=== PATIENT | female | born 1980 | race Caucasian/White ===

== ENCOUNTER 2020-06-05 20:57 | Inpatient (IN) | payer OTHER ==
[~2020-06-05] VITALS: Ht 152.4 cm; Wt 54.5 kg
[2020-06-05] MEDS ORDERED: LORA-1001 PO (22:04)
[2020-06-05] MEDS ORDERED: OMEP20 PO (22:04)
[2020-06-05] MEDS ORDERED: ESCI20TA87 PO (22:04)
[2020-06-05] MEDS ORDERED: LORazepam 1 MG TABLET PO ONE (22:30)
[2020-06-05 22:49] LABS: COVID AG,FIA SOURCE NASAL SWAB
[2020-06-05 22:50] LABS: BASOPHILS % (AUTO) 1.2 % (0.0-2.0); EOSINOPHILS % (AUTO) 0.5 % (1.0-6.0); HEMATOCRIT 34.8 % (36-46); HEMOGLOBIN 11.6 g/dL (12.0-16.0); LYMPHOCYTES # (AUTO) 1.4 K/uL (1.0-4.8); LYMPHOCYTES % (AUTO) 11.1 % (22.0-44.0); MEAN CORPUSCULAR HEMOGLOBIN 30.6 pg (26.0-34.0); MEAN CORPUSCULAR HGB CONC 33.5 G/dL (31.0-37.0); MEAN CORPUSCULAR VOLUME 92 fL (80-100); MONOCYTES # (AUTO) 0.6 K/uL (0.1-1.0); MONOCYTES % (AUTO) 4.5 % (2.0-9.0); NEUTROPHILS # (AUTO) 10.7 K/uL (1.8-7.7); NEUTROPHILS % (AUTO) 82.7 % (40.0-70.0); PLATELET COUNT (AUTO) 275 K/uL (150-450); RED CELL DISTRIBUTION WIDTH 13.6 % (11.5-14.5)
[2020-06-05 23:12] LABS: ALANINE AMINOTRANSFERASE 249 U/L (12-78); ALKALINE PHOSPHATASE 54 U/L (46-116); ANION GAP 13 mmol/L (8-16); ASPARTATE AMINOTRANSFERASE 91 U/L (15-37); BILIRUBIN,TOTAL 0.9 mg/dL (0.1-1.0); CALCIUM, TOTAL 8.9 mg/dL (8.8-10.5); CARBON DIOXIDE 25 mmol/L (22-29); CHLORIDE 105 mmol/L (98-107); CREATININE 0.82 mg/dL (0.60-1.30); GLOMERULAR FILTR. RATE CALC > 60 mL/min (>60); GLUCOSE,RANDOM 106 mg/dL (70-110); HCG,QUANTITATIVE < 1 mIU/mL (0-6); SODIUM SERUM 143 mmol/L (136-145); TOTAL PROTEIN, SERUM 7.2 g/dL (6.4-8.2); UREA NITROGEN, BLOOD 7 mg/dL (7-18)
[2020-06-05 23:15] LABS: POTASSIUM 2.5 mmol/L (3.5-5.1)
[2020-06-05] MEDS: POTASSIUM CHL 10 MEQ/WATER 50 ML IV SCH ×2 (23:30→23:42)
[2020-06-06] MEDS: POTASSIUM CHL 10 MEQ/WATER 50 ML IV SCH ×6 (00:30→02:52)
[2020-06-06] MEDS ORDERED: HALOPERIDOL 5 MG TABLET PO ONE (02:30)
[2020-06-06] MEDS ORDERED: LORazepam 1 MG TABLET PO ONE (02:30)
[2020-06-06] MEDS: ZOLPIDEM TARTRATE 10 MG TABLET PO PRN (03:22)
[2020-06-06 03:47] LABS: AMPHET/METH SCREEN,URINE NEGATIVE (NEGATIVE); BARBITURATE SCREEN, URINE NEGATIVE (NEGATIVE); BENZODIAZEPINES SCREEN,URINE POSITIVE (NEGATIVE); CANNABINOID SCREEN,URINE POSITIVE (NEGATIVE); COCAINE SCREEN,URINE NEGATIVE (NEGATIVE); METHADONE SCREEN, URINE NEGATIVE (NEGATIVE); OPIATE SCREEN,URINE NEGATIVE (NEGATIVE)
[2020-06-06 04:05] LABS: PHENCYCLIDINE SCREEN,URINE NEGATIVE (NEGATIVE)
[2020-06-06 04:47] LABS: APPEARANCE,URINE CLOUDY (CLEAR); GLUCOSE, URINE (UA) NEGATIVE (NEGATIVE); KETONES,URINE 40 mg/dL (NEGATIVE); LEUKOCYTE ESTERASE ,URINE NEGATIVE (NEGATIVE); NITRATE,URINE NEGATIVE (NEGATIVE); OCCULT BLOOD,URINE MODERATE (NEGATIVE); PH,URINE 6.5 (5.0-8.0); PROTEIN,URINE TRACE (NEGATIVE)
[2020-06-06 04:53] LABS: POTASSIUM 3.3 mmol/L (3.5-5.1)
[2020-06-06 04:53] LABS: BILIRUBIN,URINE PRELIM. POSITIVE (NEGATIVE)
[2020-06-06 05:03] LABS: SQUAMOUS EPITHELIAL CELL,UR Many /LPF (None Seen)
[2020-06-06 05:04] LABS: BACTERIA,URINE Few /HPF (None Seen); RBC,URINE 0-2 /HPF (0-2); WBC,URINE 0-2 /HPF (0-5)
[2020-06-06 06:58] LABS: CHOL/HDL RATIO 3.3 (3.9-5.7)
[2020-06-06 08:05] VITALS: BP 148/71
[2020-06-06] MEDS: HALOPERIDOL 5 MG TABLET PO PRN ×2 (08:42→17:53)
[2020-06-06] MEDS: LORazepam 2 MG TABLET PO PRN ×2 (08:42→17:53)
[2020-06-06] MEDS ORDERED: ALBUTEROL SULFATE HFA 90 MCG/PUFF 8 GM INHALER IH PRN (08:45)
[2020-06-06] MEDS ORDERED: IBUPROFEN 600 MG TABLET PO PRN (08:45)
[2020-06-06] MEDS ORDERED: CloNIDine HCL 0.1 MG TABLET PO PRN (08:45)
[2020-06-06] MEDS ORDERED: ACETAMINOPHEN 325 MG TABLET PO PRN (08:45)
[2020-06-06] MEDS ORDERED: DOCUSATE SODIUM 100 MG CAPSULE PO PRN (08:45)
[2020-06-06] MEDS ORDERED: OMEPRAZOLE 20 MG CAPSULE PO PRN (08:45)
[2020-06-06] MEDS ORDERED: BACITRACIN 28 GM OINTMENT TP PRN (08:45)
[2020-06-06] MEDS ORDERED: MAGNESIUM HYDROXIDE SUSPENSION 30 ML UDCUP PO PRN (08:45)
[2020-06-06] MEDS ORDERED: MAG HYDROX/AL HYDROX/SIMETH ES 30 ML SUSPENSION UDCUP PO PRN (08:45)
[2020-06-06] MEDS ORDERED: POTASSIUM CHLORIDE 20 MEQ ER TABLET PO ONE (08:45)
[2020-06-06] MEDS ORDERED: BENZOCAINE/MENTHOL LOZENGE PO PRN (08:45)
[2020-06-06] MEDS ORDERED: PETROLATUM,WHITE 28 GM JELLY TP PRN (08:45)
[2020-06-06] MEDS ORDERED: LOPERAMIDE HCL 2 MG CAPSULE PO PRN (08:45)
[2020-06-06] MEDS ORDERED: ONDANSETRON HCL 4 MG TABLET PO PRN (08:45)
[2020-06-07] MEDS: RisperiDONE 1 MG TABLET PO SCH ×2 (08:14→16:16)
[2020-06-07] MEDS: DIVALPROEX SODIUM 500 MG DR TABLET PO SCH ×2 (08:14→16:16)
[2020-06-07] MEDS: LORazepam 2 MG TABLET PO PRN ×3 (08:15→16:39)
[2020-06-07 12:00] VITALS: BP 141/77
[2020-06-07 16:34] VITALS: BP 123/81
[2020-06-08] MEDS: LORazepam 2 MG TABLET PO PRN ×3 (05:09→19:13)
[2020-06-08 08:10] VITALS: BP 118/73
[2020-06-08] MEDS: DIVALPROEX SODIUM 500 MG DR TABLET PO SCH ×2 (08:33→16:10)
[2020-06-08] MEDS: RisperiDONE 1 MG TABLET PO SCH ×2 (08:33→16:10)
[2020-06-08 16:00] VITALS: BP 110/75
[2020-06-08] MEDS: ZOLPIDEM TARTRATE 10 MG TABLET PO PRN (20:55)
[2020-06-09 08:26] VITALS: BP 138/88
[2020-06-09] MEDS: HALOPERIDOL 5 MG TABLET PO PRN (08:47)
[2020-06-09] MEDS: LORazepam 2 MG TABLET PO PRN ×2 (08:47→15:46)
[2020-06-09] MEDS: RisperiDONE 1 MG TABLET PO SCH ×2 (08:47→16:04)
[2020-06-09] MEDS: DIVALPROEX SODIUM 500 MG DR TABLET PO SCH ×2 (08:47→16:04)
[2020-06-09 16:00] VITALS: BP 135/93
[2020-06-10 00:20] VITALS: BP 128/78
[2020-06-10] MEDS: LORazepam 2 MG TABLET PO PRN (00:20)
[2020-06-10] MEDS: ZOLPIDEM TARTRATE 10 MG TABLET PO PRN (00:21)
[2020-06-10 08:25] VITALS: BP 122/73
[2020-06-10] MEDS: RisperiDONE 1 MG TABLET PO SCH (08:29)
[2020-06-10] MEDS: DIVALPROEX SODIUM 500 MG DR TABLET PO SCH (08:29)
== END 2020-06-10 15:00 | disposition left against medical advice (07) | DRG 885 ==
LOC: EMS 20:57 → 3EC 23:18
PROVIDERS: ADMIT Psychiatry & Neurology Psychiatry; ATTEND Psychiatry & Neurology Psychiatry
DX: F25.0 Schizoaffective disorder, bipolar type (principal); Z20.822 Contact with and (suspected) exposure to COVID-19; F12.10 Cannabis abuse, uncomplicated; I10 Essential (primary) hypertension; E87.6 Hypokalemia; K21.9 Gastro-esophageal reflux disease without esophagitis; K59.00 Constipation, unspecified; G47.00 Insomnia, unspecified; Z53.29 Procedure and treatment not carried out because of patient's decision for other reasons; F41.9 Anxiety disorder, unspecified; Z71.51 Drug abuse counseling and surveillance of drug abuser; Z91.041 Radiographic dye allergy status; Z88.8 Allergy status to other drugs, medicaments and biological substances; Z91.040 Latex allergy status; Z91.14 Patient's other noncompliance with medication regimen; Z91.018 Allergy to other foods
CPT/HCPCS: 84132; 87426; 99285; G0480; J3480

== ENCOUNTER 2020-06-27 10:57 | Inpatient (IN) | payer OTHER ==
[~2020-06-27] VITALS: Ht 152.4 cm; Wt 48.4 kg
[2020-06-27 11:47] LABS: BASOPHILS % (AUTO) 1.5 % (0.0-2.0); EOSINOPHILS % (AUTO) 2.2 % (1.0-6.0); HEMATOCRIT 33.6 % (36-46); HEMOGLOBIN 11.2 g/dL (12.0-16.0); LYMPHOCYTES # (AUTO) 1.3 K/uL (1.0-4.8); MEAN CORPUSCULAR HEMOGLOBIN 30.6 pg (26.0-34.0); MEAN CORPUSCULAR HGB CONC 33.4 G/dL (31.0-37.0); MEAN CORPUSCULAR VOLUME 92 fL (80-100); MONOCYTES # (AUTO) 0.6 K/uL (0.1-1.0); MONOCYTES % (AUTO) 5.8 % (2.0-9.0); NEUTROPHILS # (AUTO) 8.5 K/uL (1.8-7.7); NEUTROPHILS % (AUTO) 78.5 % (40.0-70.0); PLATELET COUNT (AUTO) 295 K/uL (150-450); RED BLOOD CELL COUNT(AUTO) 3.67 MIL/uL (4.00-5.20); RED CELL DISTRIBUTION WIDTH 14.1 % (11.5-14.5)
[2020-06-27 11:57] LABS: ANION GAP 7 mmol/L (8-16); CALCIUM, TOTAL 8.6 mg/dL (8.8-10.5); CARBON DIOXIDE 26 mmol/L (22-29); CHLORIDE 107 mmol/L (98-107); CREATININE 0.86 mg/dL (0.60-1.30); GLOMERULAR FILTR. RATE CALC > 60 mL/min (>60); GLUCOSE,RANDOM 101 mg/dL (70-110); POTASSIUM 3.2 mmol/L (3.5-5.1); SODIUM SERUM 140 mmol/L (136-145); UREA NITROGEN, BLOOD 8 mg/dL (7-18)
[2020-06-27 12:10] LABS: ALANINE AMINOTRANSFERASE 28 U/L (12-78); ALBUMIN 3.9 g/dL (3.4-5.0); ALKALINE PHOSPHATASE 48 U/L (46-116); ASPARTATE AMINOTRANSFERASE 15 U/L (15-37); BILIRUBIN,TOTAL 0.6 mg/dL (0.1-1.0); HCG,QUANTITATIVE < 1 mIU/mL (0-6); TOTAL PROTEIN, SERUM 7.1 g/dL (6.4-8.2)
[2020-06-27 12:13] LABS: VALPROIC ACID < 3 mcg/mL (50-100)
[2020-06-27] MEDS ORDERED: POTASSIUM CHLORIDE 10% 40 MEQ/30 ML LIQUID UDCUP PO ONE (12:45)
[2020-06-27] MEDS ORDERED: LORazepam 2 MG TABLET PO PRN (12:45)
[2020-06-27 13:57] LABS: AMPHET/METH SCREEN,URINE NEGATIVE (NEGATIVE); BARBITURATE SCREEN, URINE NEGATIVE (NEGATIVE); BENZODIAZEPINES SCREEN,URINE NEGATIVE (NEGATIVE); CANNABINOID SCREEN,URINE POSITIVE (NEGATIVE); COCAINE SCREEN,URINE NEGATIVE (NEGATIVE); METHADONE SCREEN, URINE NEGATIVE (NEGATIVE); OPIATE SCREEN,URINE NEGATIVE (NEGATIVE)
[2020-06-27 13:58] LABS: PHENCYCLIDINE SCREEN,URINE NEGATIVE (NEGATIVE)
[2020-06-27 16:53] LABS: COVID AG,FIA SOURCE NASOPHARYNGEAL
[2020-06-27 18:11] VITALS: BP 130/88
[2020-06-28] MEDS ORDERED: LOPERAMIDE HCL 2 MG CAPSULE PO PRN (06:45)
[2020-06-28] MEDS ORDERED: MAG HYDROX/AL HYDROX/SIMETH ES 30 ML SUSPENSION UDCUP PO PRN (06:45)
[2020-06-28] MEDS ORDERED: CloNIDine HCL 0.1 MG TABLET PO PRN (06:45)
[2020-06-28] MEDS ORDERED: PETROLATUM,WHITE 28 GM JELLY TP PRN (06:45)
[2020-06-28] MEDS ORDERED: ONDANSETRON HCL 4 MG TABLET PO PRN (06:45)
[2020-06-28] MEDS ORDERED: BACITRACIN 28 GM OINTMENT TP PRN (06:45)
[2020-06-28] MEDS ORDERED: BENZOCAINE/MENTHOL LOZENGE PO PRN (06:45)
[2020-06-28] MEDS ORDERED: ALBUTEROL SULFATE HFA 90 MCG/PUFF 8 GM INHALER IH PRN (06:45)
[2020-06-28] MEDS ORDERED: MAGNESIUM HYDROXIDE SUSPENSION 30 ML UDCUP PO PRN (06:45)
[2020-06-28] MEDS ORDERED: OMEPRAZOLE 20 MG CAPSULE PO PRN (06:45)
[2020-06-28] MEDS ORDERED: DOCUSATE SODIUM 100 MG CAPSULE PO PRN (06:45)
[2020-06-28] MEDS ORDERED: ACETAMINOPHEN 325 MG TABLET PO PRN (06:45)
[2020-06-28 08:00] VITALS: BP 116/66
[2020-06-28] MEDS: LORazepam 2 MG TABLET PO PRN ×2 (10:55→21:14)
[2020-06-28] MEDS: LITHIUM CARBONATE 300 MG CAPSULE PO SCH ×2 (16:58→17:00)
[2020-06-28 18:50] VITALS: BP 118/65
[2020-06-28] MEDS: HALOPERIDOL 5 MG TABLET PO PRN (21:15)
[2020-06-29 01:09] VITALS: BP 136/80
[2020-06-29 08:00] VITALS: BP 108/75
[2020-06-29] MEDS: LORazepam 2 MG TABLET PO PRN ×3 (08:39→18:39)
[2020-06-29] MEDS: HALOPERIDOL 5 MG TABLET PO PRN (08:51)
[2020-06-29] MEDS: LITHIUM CARBONATE 300 MG CAPSULE PO SCH ×2 (09:00→17:00)
[2020-06-29 12:10] VITALS: BP 116/79
[2020-06-29] MEDS: IBUPROFEN 600 MG TABLET PO PRN (12:13)
[2020-06-29 13:13] VITALS: BP 111/65
[2020-06-29 16:00] VITALS: BP 132/78
[2020-06-30 08:00] VITALS: BP 135/78
[2020-06-30] MEDS: LORazepam 2 MG TABLET PO PRN ×2 (08:31→18:14)
[2020-06-30] MEDS: DIVALPROEX SODIUM 500 MG DR TABLET PO SCH ×2 (08:31→16:49)
[2020-06-30] MEDS: RisperiDONE 1 MG TABLET PO SCH ×2 (08:31→16:49)
[2020-06-30] MEDS: HALOPERIDOL 5 MG TABLET PO PRN ×3 (08:31→23:50)
[2020-06-30] MEDS: LITHIUM CARBONATE 300 MG CAPSULE PO SCH ×2 (08:31→16:50)
[2020-06-30 16:00] VITALS: BP 132/75
[2020-06-30] MEDS: ZOLPIDEM TARTRATE 10 MG TABLET PO PRN (23:50)
[2020-07-01 07:48] LABS: ANION GAP 9 mmol/L (8-16); CALCIUM, TOTAL 8.7 mg/dL (8.8-10.5); CARBON DIOXIDE 29 mmol/L (22-29); CHLORIDE 108 mmol/L (98-107); CREATININE 0.69 mg/dL (0.60-1.30); GLOMERULAR FILTR. RATE CALC > 60 mL/min (>60); GLUCOSE,RANDOM 86 mg/dL (70-110); POTASSIUM 3.9 mmol/L (3.5-5.1); SODIUM SERUM 146 mmol/L (136-145); UREA NITROGEN, BLOOD 3 mg/dL (7-18)
[2020-07-01] MEDS: LITHIUM CARBONATE 300 MG CAPSULE PO SCH ×3 (09:00→16:26)
[2020-07-01] MEDS: DIVALPROEX SODIUM 500 MG DR TABLET PO SCH ×2 (10:13→16:26)
[2020-07-01] MEDS: RisperiDONE 1 MG TABLET PO SCH ×2 (10:13→16:26)
[2020-07-01] MEDS: LORazepam 2 MG TABLET PO PRN ×3 (12:22→22:02)
[2020-07-01] MEDS: IBUPROFEN 600 MG TABLET PO PRN (13:44)
[2020-07-01 17:13] VITALS: BP 100/61
[2020-07-01] MEDS: ZOLPIDEM TARTRATE 10 MG TABLET PO PRN (23:38)
[2020-07-01] MEDS: HALOPERIDOL 5 MG TABLET PO PRN (23:38)
[2020-07-02 08:00] VITALS: BP 122/74
[2020-07-02] MEDS: FOLIC ACID 0.4 MG TABLET PO SCH (08:43)
[2020-07-02] MEDS: DIVALPROEX SODIUM 500 MG DR TABLET PO SCH ×2 (08:45→16:42)
[2020-07-02] MEDS: RisperiDONE 1 MG TABLET PO SCH ×2 (08:45→16:42)
[2020-07-02] MEDS: LORazepam 2 MG TABLET PO PRN ×4 (08:45→22:49)
[2020-07-02] MEDS: HALOPERIDOL 5 MG TABLET PO PRN ×4 (08:45→22:49)
[2020-07-02] MEDS: THIAMINE 100 MG TABLET PO SCH (08:45)
[2020-07-02 16:37] LABS: COVID AG,FIA SOURCE NASOPHARYNGEAL
[2020-07-02] MEDS: IBUPROFEN 600 MG TABLET PO PRN (19:39)
[2020-07-03] MEDS: LORazepam 2 MG TABLET PO PRN ×3 (07:53→20:36)
[2020-07-03] MEDS: HALOPERIDOL 5 MG TABLET PO PRN ×3 (07:53→16:22)
[2020-07-03] MEDS: DIVALPROEX SODIUM 500 MG DR TABLET PO SCH ×2 (07:53→16:22)
[2020-07-03] MEDS: RisperiDONE 1 MG TABLET PO SCH (07:53)
[2020-07-03] MEDS: FOLIC ACID 0.4 MG TABLET PO SCH (07:53)
[2020-07-03] MEDS: THIAMINE 100 MG TABLET PO SCH (07:53)
[2020-07-03 08:35] VITALS: BP 107/68
[2020-07-03] MEDS: RisperiDONE 3 MG TABLET PO SCH (16:22)
[2020-07-03 16:37] VITALS: BP 106/69
[2020-07-03] MEDS: ZOLPIDEM TARTRATE 10 MG TABLET PO PRN (23:59)
[2020-07-04] MEDS: LORazepam 2 MG TABLET PO PRN ×4 (06:10→23:10)
[2020-07-04] MEDS: DIVALPROEX SODIUM 500 MG DR TABLET PO SCH ×2 (08:02→16:23)
[2020-07-04] MEDS: RisperiDONE 3 MG TABLET PO SCH ×2 (08:02→16:23)
[2020-07-04] MEDS: FOLIC ACID 0.4 MG TABLET PO SCH (08:02)
[2020-07-04] MEDS: THIAMINE 100 MG TABLET PO SCH (08:02)
[2020-07-04 08:06] VITALS: BP 101/72
[2020-07-04 15:19] VITALS: BP 98/68
[2020-07-04] MEDS: IBUPROFEN 600 MG TABLET PO PRN (15:19)
[2020-07-04 16:19] VITALS: BP 102/68
[2020-07-04] MEDS: HALOPERIDOL 5 MG TABLET PO PRN (16:23)
[2020-07-04] MEDS: ZOLPIDEM TARTRATE 10 MG TABLET PO PRN (20:32)
[2020-07-05] MEDS: HALOPERIDOL 5 MG TABLET PO PRN (05:17)
[2020-07-05] MEDS: DIVALPROEX SODIUM 500 MG DR TABLET PO SCH ×3 (07:58→16:18)
[2020-07-05] MEDS: FOLIC ACID 0.4 MG TABLET PO SCH (07:58)
[2020-07-05] MEDS: RisperiDONE 3 MG TABLET PO SCH ×2 (07:59→16:18)
[2020-07-05] MEDS: THIAMINE 100 MG TABLET PO SCH (07:59)
[2020-07-05] MEDS: LORazepam 2 MG TABLET PO PRN ×2 (07:59→12:03)
[2020-07-05 08:39] VITALS: BP 101/68
[2020-07-05 16:40] VITALS: BP 108/73
[2020-07-06] MEDS: ZOLPIDEM TARTRATE 10 MG TABLET PO PRN (00:34)
[2020-07-06] MEDS: LORazepam 2 MG TABLET PO PRN ×3 (00:34→19:49)
[2020-07-06 00:36] VITALS: BP 114/63
[2020-07-06 09:38] VITALS: BP 112/66
[2020-07-06] MEDS: FOLIC ACID 0.4 MG TABLET PO SCH (09:42)
[2020-07-06] MEDS: THIAMINE 100 MG TABLET PO SCH (09:42)
[2020-07-06] MEDS: RisperiDONE 3 MG TABLET PO SCH ×2 (09:43→16:12)
[2020-07-06] MEDS: DIVALPROEX SODIUM 500 MG DR TABLET PO SCH ×3 (09:43→16:12)
[2020-07-06] MEDS: HALOPERIDOL 5 MG TABLET PO PRN ×2 (09:43→19:49)
[2020-07-06 16:27] VITALS: BP 86/57
[2020-07-06 19:51] VITALS: BP 101/66
[2020-07-07 09:15] VITALS: BP 100/61
[2020-07-07] MEDS: FOLIC ACID 0.4 MG TABLET PO SCH (11:39)
[2020-07-07] MEDS: THIAMINE 100 MG TABLET PO SCH (11:40)
[2020-07-07] MEDS: RisperiDONE 3 MG TABLET PO SCH ×2 (11:40→17:23)
[2020-07-07] MEDS: DIVALPROEX SODIUM 500 MG DR TABLET PO SCH ×3 (11:40→17:23)
[2020-07-07] MEDS: HALOPERIDOL 5 MG TABLET PO PRN ×2 (15:29→20:37)
[2020-07-07 16:16] VITALS: BP 125/70
[2020-07-08] MEDS: FOLIC ACID 0.4 MG TABLET PO SCH (09:18)
[2020-07-08] MEDS: THIAMINE 100 MG TABLET PO SCH (09:18)
[2020-07-08] MEDS: DIVALPROEX SODIUM 500 MG DR TABLET PO SCH ×3 (09:18→16:51)
[2020-07-08] MEDS: RisperiDONE 3 MG TABLET PO SCH ×2 (09:18→16:51)
[2020-07-08] MEDS: HALOPERIDOL 5 MG TABLET PO PRN ×2 (09:19→19:15)
[2020-07-08 09:30] VITALS: BP 95/62
[2020-07-08 16:25] VITALS: BP 122/80
[2020-07-09] MEDS: HALOPERIDOL 5 MG TABLET PO PRN ×2 (05:02→20:01)
[2020-07-09 08:00] VITALS: BP 124/74
[2020-07-09 09:16] VITALS: BP 122/80
[2020-07-09] MEDS: FOLIC ACID 0.4 MG TABLET PO SCH (09:58)
[2020-07-09] MEDS: RisperiDONE 3 MG TABLET PO SCH ×2 (09:58→16:05)
[2020-07-09] MEDS: THIAMINE 100 MG TABLET PO SCH (09:58)
[2020-07-09] MEDS: DIVALPROEX SODIUM 500 MG DR TABLET PO SCH ×3 (09:58→16:05)
[2020-07-09 12:00] LABS: COVID AG,FIA SOURCE NASOPHARYNGEAL
[2020-07-09] MEDS: IBUPROFEN 600 MG TABLET PO PRN (16:05)
[2020-07-09 16:33] VITALS: BP 118/79
[2020-07-10] MEDS: HALOPERIDOL 5 MG TABLET PO PRN ×4 (00:52→20:56)
[2020-07-10 08:00] VITALS: BP 110/63
[2020-07-10] MEDS: THIAMINE 100 MG TABLET PO SCH (10:00)
[2020-07-10] MEDS: DIVALPROEX SODIUM 500 MG DR TABLET PO SCH ×3 (10:00→16:16)
[2020-07-10] MEDS: RisperiDONE 3 MG TABLET PO SCH ×2 (10:00→16:17)
[2020-07-10] MEDS: FOLIC ACID 0.4 MG TABLET PO SCH (10:00)
[2020-07-10 16:38] VITALS: BP 111/67
[2020-07-11] MEDS: HALOPERIDOL 5 MG TABLET PO PRN (04:40)
[2020-07-11] MEDS ORDERED: DIVA-112 PO (09:45)
[2020-07-11] MEDS ORDERED: THIA100T80 PO (09:45)
[2020-07-11] MEDS ORDERED: FOLI0.4T6 PO (09:45)
[2020-07-11] MEDS ORDERED: RISP3TAB35 PO (09:45)
[2020-07-11] MEDS: RisperiDONE 3 MG TABLET PO SCH (09:49)
[2020-07-11] MEDS: DIVALPROEX SODIUM 500 MG DR TABLET PO SCH ×2 (09:49→12:59)
[2020-07-11] MEDS: THIAMINE 100 MG TABLET PO SCH (09:50)
[2020-07-11] MEDS: FOLIC ACID 0.4 MG TABLET PO SCH (09:50)
== END 2020-07-11 12:15 | disposition home or self-care (01) | DRG 885 ==
LOC: EMS 11:00 → 3EC 14:27
PROVIDERS: ADMIT Psychiatry & Neurology Psychiatry; ATTEND Psychiatry & Neurology Psychiatry
DX: F31.9 Bipolar disorder, unspecified (principal); Z88.8 Allergy status to other drugs, medicaments and biological substances; Z91.041 Radiographic dye allergy status; Z91.040 Latex allergy status; F41.9 Anxiety disorder, unspecified; I10 Essential (primary) hypertension; E87.6 Hypokalemia; K59.00 Constipation, unspecified; G47.00 Insomnia, unspecified; Z20.822 Contact with and (suspected) exposure to COVID-19
CPT/HCPCS: 87081; 87426; 99285; G0480